=== PATIENT | male | born 1975 ===

== ENCOUNTER 2021-03-18 15:34 | Emergency (ER) | payer SELFPAY ==
[2021-03-18 18:25] VITALS: BP 129/91
--- NOTE | 2021-03-18 18:59 | Emergency Department Report ---
ED Fever HPI - General Chief Complaint: Fever Stated Complaint: FEVER AND PAIN FOR 7 DAYS Time Seen by Provider: 03/18/21 18:31 Source: patient Exam Limitations: no limitations - History of Present Illness Initial Comments: 45-year male presents to the hospital with complaints of cough, intermittent fever, and body aches for the last 7 days. Patient denies shortness of breath, chest pain, nausea, vomiting, or diarrhea. He is unvaccinated for Covid. He states other household members have been sick but have recovered. ED Review of Systems ROS: Stated complaint: FEVER AND PAIN FOR 7 DAYS Other details as noted in HPI Comment: All other systems reviewed and negative ED Past Medical Hx - Past Medical History Previous Medical History?: No - Surgical History Past Surgical History?: No ED Physical Exam - General Limitations: No Limitations - Other Other exam information: General: No acute distress Head: Atraumatic Eyes: normal appearance ENT: Moist mucous membranes Neck: Normal appearance, no midline tenderness Chest: Clear to auscultation bilaterally CV: Regular rate and rhythm Abdomen: Soft, normal bowel sounds, nontender, nondistended, no rebound or guarding Back: Normal inspection Extremity: Normal inspection, full range of motion Neuro: Alert O x 3, no facial asymmetry, speech clear, no gross motor sensory deficit Psych: Appropriate behavior Skin: No rash ED Course Vital Signs 03/18/21 18:23 Temperature 98.7 F Pulse Rate 69 Respiratory 16 Rate Blood Pressure 129/91 [Left] O2 Sat by Pulse 98 Oximetry ED Medical Decision Making - Medical Decision Making 45-year-old male with no severe past medical history presents to the hospital with viral symptoms. Patient is unvaccinated for Covid. Instructed to obtain outpatient Covid test. At this time patient is stable without signs of hypoxia or clinical signs of pneumonia. Continued treatment with [id number] medications recommended. Critical Care Time: No Critical care attestation.: If time is entered above; I have spent that time in minutes in the direct care of this critically ill patient, excluding procedure time. ED Disposition Clinical Impression: Viral illness Disposition: HOME / SELF CARE / HOMELESS Is pt being admited?: No Does the pt Need Aspirin: No Condition: Stable Instructions: Viral Respiratory Infection, [id number], Prevent the Spread of COVID-19 if You Are Sick - CDC, Hantavirus Infection Additional Instructions: Take Tylenol or Motrin as needed for pain and fever. Take [id number] medication as needed for cough and other infectious symptoms. follow-up with your doctor or doctor/clinic provided. Return if symptoms worsen as indicated by your discharge instructions. It is important that you obtain an outpatient Covid test and quarantine and quarantine as per CDC guidelines if you are positive [place] Tylenol o Motrin segn sea necesario para el dolor y la fiebre. [place] medicamentos de venta greg segn sea necesario para la tos y otros sntomas infecciosos. seguimiento con martinez mdico o mdico / clnica proporcionada. Regrese si los sntomas empeoran segn lo indicado en celine instrucciones de celeste. Es importante que obtenga pham prueba de Covid para pacientes ambulatorios y cuarentena y cuarentena de acuerdo con las pautas de los CDC si da positivo Referrals: [facility] [Provider Group] - 3-5 Days YOSHI ROBISON MD [Staff Physician] - 3-5 Days Forms: Work/School Release Form(ED) Time of Disposition: 18:59 Print Language: DIVEHI
== END 2021-03-18 20:00 | disposition home or self-care (01) ==
LOC: ED 15:34
DX: B34.9 Viral infection, unspecified (principal)
CPT/HCPCS: 99281